=== PATIENT | female | born 1955 | race Hispanic/Latino ===

== ENCOUNTER 2016-12-19 09:10 | Day surgery (SDC) | payer MEDICAID ==
[2016-12-08 11:51] VITALS: BMI 23.8
[~2016-12-19 09:10] MED LIST: Gentamicin 160 MG in Sodium Chloride 0.9% 100 ML IVPB ONE
[2016-12-19] MEDS ORDERED: HYDROmorphone 0.5 mg/0.5 ml ISec IVP PRN ×2 (09:39→11:52)
[2016-12-19 10:13] LABS: INR 1.2
[2016-12-19] MEDS ORDERED: Lactated Ringer's 1,000 ML IV ONE ×2 (11:15)
[2016-12-19] MEDS ORDERED: Ciprofloxacin 400mg/200ml D5W 200 ML IVPB ONE (11:24)
[2016-12-19] MEDS ORDERED: Lidocaine 2% Jelly (Uro-Jet) ONE (11:25)
[2016-12-19] MEDS ORDERED: Propofol 10 mg/ml Inj (20 ML) ONE (11:25)
[2016-12-19] MEDS ORDERED: Midazolam 2 MG/2 ML VIAL ONE (11:51)
--- NOTE | 2016-12-19 12:00 | PCM.SURG1 ---
Surgeon's Initial Post Op Note - Surgeon's Notes Surgeon: Yimi Funeral Arranger: bart Type of Anesthesia: General Mask Anesthesia Administered By: staff Pre-Operative Diagnosis: Urinary Incontence Operative Findings: Urethral stenosis/mod BN hypermobility/no uninhibited contract. Post-Operative Diagnosis: urinary incontence mixed Operation Performed: cysto w urethral dil/cmg Specimen/Specimens Removed: na Estimated Blood Loss: EBL {In ML}: 0 Blood Products Given: N/A Drains Used: No Drains Post-Op Condition: Good Date of Surgery/Procedure: 12/19/16 Time of Surgery/Procedure: 12:00
--- NOTE | 2016-12-19 15:11 | OP ---
PROCEDURE DATE: 12/19/2016 PREOPERATIVE DIAGNOSIS: Urinary incontinence. POSTOPERATIVE DIAGNOSIS: Urinary incontinence, mixed and urethral stricture. PROCEDURE: Cystoscopy with dilatation of the urethra, cystometrogram and cystoscopy. DESCRIPTION OF PROCEDURE: Prior to the procedure, a detailed informed consent was obtained from the patient. She was asked to agree to the risks and complications and made aware of all the risks and c omplications and other options for treatment of urinary incontinence. She was brought into the room and a timeout was taken according to the rules and regulations of [facility]. She was placed in lithotomy position, draped and prepped in the usual manner. She received prophylactic antibiotics. Attempt was made to insert an 18 Alcocer catheter. The ureter was stenotic and required dilatation to 22. This was done with Richard sounds. The catheter was then inserted. There was approximately 100 mL of postvoid residual. Culture was obtained. The cystometrogram was then performed using the equipment at [facility]. It showed no evidence of uninhibited contractions. The patient was th en cystoscoped with a #21 Storz panendoscope. The urethra was normal. The bladder neck was open at rest. The bladder was entered atraumatically. There was +2 trabeculation of the bladder. No eviden ce of urothelial tumor or stone. Both ureteral orifices effluxed clear urine. The bladder was fille d. The catheter removed and the patient was asked to cough or sneeze and there was no leaking in the recumbent position. A Q-tip was placed in the urethra. There was moderate descent of the bladder n avinash on coughing and sneezing. Based on the above findings, the patient has mixed incontinence. We w ill try her on medication first before we consider surgical treatment. David Geller MD cc: [id number] TT: 12/19/2016 15:10:40 oh
[2016-12-20 16:00] VITALS: RESP 16
[2016-12-20 16:01] VITALS: BP 103/64; PULSE 63; TEMP 97.2; O2SAT 99
== END 2016-12-19 13:30 | disposition home or self-care (01) ==
LOC: C.SDS 09:10
PROVIDERS: ATTEND Urology
DX: R32 Unspecified urinary incontinence (principal); N35.9 Urethral stricture, unspecified
CPT/HCPCS: 36415; 52281; 82948; 85610; 85730; 87086; J0744; J1580; J7120